=== PATIENT | male | born 1970 | race African-American/Black ===

== ENCOUNTER 2016-12-11 10:46 | Inpatient (IN) | payer OTHER ==
[2016-12-11 12:58] VITALS: BMI 30.4
--- NOTE | 2016-12-11 15:01 | HP ---
CIWA Score - CIWA Score Nausea/Vomitin-No Nausea/No Vomiting Muscle Tremors: 4-Moderate,w/Arms Extend Anxiety: 3 Agitation: 4-Moderately Restless Paroxysmal Sweats: 3 Orientation: 0-Oriented Tacttile Disturbances: 0-None Auditory Disturbances: 0-None Visual Disturbances: 0-None Headache: 1-Very Mild CIWA-Ar Total Score: 15 Admission ROS BHS - HPI Chief Complaint: I was sober for 4yrs and just relapsed and I need help. Allergies/Adverse Reactions: Allergies Allergy/AdvReac Type Severity Reaction Status Date / Time No Known Allergies Allergy Verified 12/11/16 13:44 History of Present Illness: pt is a 46yr old male with a history of alcohol dependence seeking detox for treatment. pt has a period of 4yrs sober and recently relapsed. pt also was upset and hit a wall where he fractured his metacarpal to forth finger soft cast intact. pt will f/u after detox. Exam Limitations: Physical Impairment (right hand injury 4weeks.) - Ebola screening Have you traveled outside of the country in the last 21 days: No Have you had contact with anyone from an Ebola affected area: No Have you been sick,other than usual withdrawal symptoms: No Do you have a fever: No - Review of Systems Constitutional: Chills, Diaphoresis, Night Sweats EENT: reports: No Symptoms Reported Respiratory: reports: No Symptoms reported Cardiac: reports: No Symptoms Reported GI: reports: Diarrhea, Poor Fluid Intake : reports: No Symptoms Reported Musculoskeletal: reports: Other (throbbing sensation at times from finger injury right hand) Integumentary: reports: No Symptoms Reported Neuro: reports: Tingling, Tremors Endocrine: reports: Excessive Sweating, Flushing, Intolerance to Cold, Intolerance to Heat Hematology: reports: No Symptoms Reported Psychiatric: reports: Judgement Intact, Mood/Affect Appropiate, Orientated x3, Agitated, Anxious Other Systems: Reviewed and Negative Patient History - Patient Medical History Hx Anemia: No Hx Asthma: No Hx Chronic Obstructive Pulmonary Disease (COPD): No Hx Cancer: No Hx Cardiac Disorders: No Hx Congestive Heart Failure: No Hx Hypertension: No Hx Hypercholesterolemia: No Hx Pacemaker: No HX Cerebrovascular Accident: No Hx Seizures: No Hx Dementia: No Hx Diabetes: Yes (NIDDM) Hx Gastrointestinal Disorders: No Hx Liver Disease: No Hx Genitourinary Disorders: No Hx Sexually Transmitted Disorders: Yes (gonorrhea/syphilis) Hx Renal Disease (ESRD): No Hx Thyroid Disease: No Hx Human Immunodeficiency Virus (HIV): No (negative) Hx Hepatitis C: No Hx Depression: Yes Hx Suicide Attempt: Yes (pill overdose in 2009) Hx Bipolar Disorder: No Hx Schizophrenia: No - Patient Surgical History Past Surgical History: No Hx Neurologic Surgery: No Hx Cataract Extraction: No Hx Cardiac Surgery: No Hx Lung Surgery: No Hx Breast Surgery: No Hx Breast Biopsy: No Hx Abdominal Surgery: No Hx Appendectomy: No Hx Cholecystectomy: No Hx Genitourinary Surgery: No Hx Section: No Hx Orthopedic Surgery: No Anesthesia Reaction: No - PPD History Previous Implant?: Yes Documented Results: Negative w/o proof Implanted On Prior R Admission?: No PPD to be Administered?: Yes - Reproductive History Patient is a Female of Child Bearing Age (11 -55 yrs old): No - Smoking Cessation Smoking history: Current every day smoker Have you smoked in the past 12 months: Yes Aproximately how many cigarettes per day: 20 Hx Chewing Tobacco Use: No Initiated information on smoking cessation: Yes 'Breaking Loose' booklet given: 12/11/16 - Substance & Tx. History Hx Alcohol Use: Yes Hx Substance Use: Yes Substance Use Type: Alcohol, Cocaine - Substances Abused Crack Route: Smoking Frequency: 3-6 times per week Amount used: $80 Age of first use: 12 Date of Last Use: 12/11/16 Alcohol-beer Route: Oral Frequency: Daily Amount used: 1 case of beer Age of first use: 12 Date of Last Use: 12/11/16 Family Disease History - Family Disease History Family History: Denies Family Disease History: Diabetes: Mother Admission Physical Exam BHS - Vital Signs Vital Signs: Vital Signs - 24 hr 12/11/16 12:55 Temperature 97 F L Pulse Rate 81 Respiratory 20 Rate Blood Pressure 112/66 - Physical General Appearance: Yes: Appropriately Dressed, Moderate Distress, Tremorous, Irritable, Sweating, Anxious HEENTM: Yes: Hearing grossly Normal Respiratory: Yes: Lungs Clear, Normal Breath Sounds, No Respiratory Distress Neck: Yes: No masses,lesions,Nodules Breast: Yes: Within Normal Limits Cardiology: Yes: Regular Rhythm, Regular Rate, S1, S2 Abdominal: Yes: Normal Bowel Sounds Genitourinary: Yes: Within Normal Limits Back: Yes: Normal Inspection Musculoskeletal: Yes: Within Normal Limits Extremities: Yes: Normal Capillary Refill, Normal Inspection, Tremors Neurological: Yes: Fully Oriented, Alert, Normal Response Integumentary: Yes: Normal Color, Diaphoresis Lymphatic: Yes: Within Normal Limits - Diagnostic (1) Diabetes mellitus Current Visit: Yes Status: Chronic Qualifiers: Diabetes mellitus type: type 1 Diabetes mellitus complication status: without complication Qualified Code(s): E10.9 - Type 1 diabetes mellitus without complications (2) Alcohol dependence with uncomplicated withdrawal Current Visit: Yes Status: Chronic (3) Cocaine dependence Current Visit: Yes Status: Chronic Qualifiers: Substance use status: uncomplicated Qualified Code(s): F14.20 - Cocaine dependence, uncomplicated (4) Finger injury Current Visit: Yes Status: Acute Qualifiers: Encounter type: initial encounter Laterality: right Qualified Code(s): S69.91XA - Unspecified injury of right wrist, hand and finger(s), initial encounter Comment: soft cast intact Cleared for Admission [facility] - Detox or Rehab [facility] Level of Care: Medically Managed Detox Regimen/Protocol: Librium [facility] Breath Alcohol Content Breath Alcohol Content: 0.074 Urine Drug Screen - Results Drug Screen Negative: No Urine Drug Screen Results: BRET-Cocaine
[2016-12-11] MEDS ORDERED: hydrOXYzine PAMOATE 50 MG CAPSULE (FP) PO PRN (15:13)
[2016-12-11] MEDS ORDERED: MENTHOL/PHENOL 1 EACH UD MM PRN (15:13)
[2016-12-11] MEDS ORDERED: diphenhydrAMINE HCL 50 MG CAPSULE PO PRN (15:13)
[2016-12-11] MEDS ORDERED: MAG HYDROX/AL HYDROX/SIMETH 30 ML UNIT-DOSE CUP PO PRN (15:13)
[2016-12-11] MEDS ORDERED: LOPERAMIDE HCL 2 MG CAPSULE PO PRN (15:13)
[2016-12-11] MEDS ORDERED: MAGNESIUM HYDROX 2400MG/30ML ORAL SUSPENSION 30 ML CUP PO PRN (15:13)
[2016-12-11] MEDS ORDERED: chlordiazePOXIDE HCL 25 MG CAPSULE PO PRN (15:13)
[2016-12-11] MEDS ORDERED: MAGNESIUM CITRATE 300 ML BOTTLE PO PRN (15:13)
[2016-12-11] MEDS ORDERED: guaiFENesin/D-METHORPHAN HB 10 ML UNIT-DOSE CUPS PO PRN (15:13)
[2016-12-11] MEDS ORDERED: IBUPROFEN 400 MG TABLET (FP) PO PRN (15:13)
[2016-12-11] MEDS ORDERED: P-EPHED 60MG/TRIPROLIDI 2.5MG TABLET PO PRN (15:13)
[2016-12-11] MEDS ORDERED: ACETAMINOPHEN 325 MG TABLET (FP) PO PRN (15:13)
[2016-12-11] MEDS ORDERED: chlordiazePOXIDE HCL 25 MG CAPSULE PO ONE (15:19)
--- NOTE | 2016-12-11 16:52 | CONSULT ---
[facility] Psychiatric Consult - Data Date of interview: 12/11/16 Admission source: [facility] Identifying data: First admission to [facility] for this 46 y/o AA male seeking detox treatment for alcohol and cocaine dependence.Patient is single,a father of one,domiciled,currently unemployed and supported on food stamps. Substance Abuse History: - Smoking Cessation. Smoking history: Current every day smoker. Have you smoked in the past 12 months: Yes. Aproximately how many cigarettes per day: 20. Hx Chewing Tobacco Use: No. Initiated information on smoking cessation: Yes. 'Breaking Loose' booklet given: 12/11/16. - Substance & Tx. History. Hx Alcohol Use: Yes. Hx Substance Use: Yes. Substance Use Type : Alcohol, Cocaine. - Substances Abused. Crack. Route: Smoking. Frequency : 3-6 times per week. Amount used: $80. Age of first use: 12. Date of Last Use: 12/11/16. Alcohol-beer. Route: Oral. Frequency: Daily. Amount used: 1 case of beer. Age of first use: 12. Date of Last Use: 12/11/16. Confirmed by patient. Medical History: History of treatment for gonorrhea and syphilis,diabetes mellitus and recent fracture of right hand. Psychiatric History: Patient admits to a history of multiple psychiatric hospitalizations ([facility]).Diagnosed with Bipolar Disorder.Prescribed trazodone 150 mg/hs and lithium carbonate 600 mg po bid.Mr Wilder does not attend OPD clinics.He gets scripts from sporadic emergency room visits,detox/rehab units and retentions to various [facility] inpatient services.He indicates that he was discharged on 12/04/16 from [facility] in [place], [place].Noted history of a suicide attempt in 2008 (overdose with medications). Physical/Sexual Abuse/Trauma History: Patient denies. Additional Comment: Urine Drug Screen Results: BRET-Cocaine.Noted. Mental Status Exam - Mental Status Exam Alert and Oriented to: Time, Place, Person Cognitive Function: Good Patient Appearance: Well Groomed (right hand in soft cast) Mood: Hopeful, Euthymic Affect: Appropriate, Normal Range Patient Behavior: Fatigued, Appropriate, Cooperative Speech Pattern: Clear Voice Loudness: Normal Thought Process: Goal Oriented Thought Disorder: Not Present Hallucinations: Denies Suicidal Ideation: Denies Homicidal Ideation: Denies Insight/Judgement: Poor Sleep: Fair Appetite: Good Muscle strength/Tone: Normal Gait/Station: Normal Psychiatric Findings - Problem List ([place] 1, 2,3) (1) Alcohol dependence with uncomplicated withdrawal Current Visit: Yes Status: Acute (2) Cocaine dependence Current Visit: Yes Status: Acute Qualifiers: Substance use status: uncomplicated Qualified Code(s): F14.20 - Cocaine dependence, uncomplicated (3) Nicotine dependence Current Visit: Yes Status: Acute (4) Bipolar disorder Current Visit: Yes Status: Chronic (5) Finger injury Current Visit: Yes Status: Acute Qualifiers: Encounter type: initial encounter Laterality: right Qualified Code(s): S69.91XA - Unspecified injury of right wrist, hand and finger(s), initial encounter Comment: soft cast intact (6) Diabetes mellitus Current Visit: Yes Status: Chronic Qualifiers: Diabetes mellitus type: type 1 Diabetes mellitus complication status: without complication Qualified Code(s): E10.9 - Type 1 diabetes mellitus without complications - Initial Treatment Plan Initial Treatment Plan: Psychoeducation.Detoxification.Medications : lithium is held until further orders (no labs available) + trazodone 100 mg po hs.Medications are confirmed by pharmacy claims of 11/30/16 @ [facility] Consult # [id number] / provider Rodrigo Carbajal.Patient is made aware of the necessity of particular labs ( renal function,electrolytes) prior to initiating lithotherapy.Made aware of potential for priapism (trazodone).Mr Wilder is in agreement with this plan of care.Observation.
[2016-12-11] MEDS: chlordiazePOXIDE HCL 25 MG CAPSULE PO SCH ×2 (18:37→22:08)
[2016-12-11] MEDS: THIAMINE HCL 100 MG TABLET (FP) PO SCH (22:07)
[2016-12-11] MEDS: NAPROXEN 500 MG TABLET (FP) PO SCH (22:08)
[2016-12-11] MEDS ORDERED: traZODone HCL 50 MG TABLET (FP) PO STA (23:48)
[2016-12-12] MEDS: chlordiazePOXIDE HCL 25 MG CAPSULE PO SCH ×4 (06:13→22:43)
[2016-12-12] MEDS: metFORMIN HCL 500 MG TABLET (FP) PO SCH (06:14)
--- NOTE | 2016-12-12 09:14 | EKG ---
Test Reason : Blood Pressure : / mmHG Vent. Rate : 073 BPM Atrial Rate : 073 BPM P-R Int : 190 ms QRS Dur : 094 ms QT Int : 388 ms P-R-T Axes : 016 028 025 degrees QTc Int : 427 ms NORMAL SINUS RHYTHM SEPTAL INFARCT , AGE UNDETERMINED ABNORMAL ECG NO PREVIOUS ECGS AVAILABLE Confirmed by HANNAH PECK, NELI ([id number]) on 12/12/2016 9:14:18 AM Referred By: Confirmed By:NELI YOUNG MD
[2016-12-12 10:14] LABS: MCH 33.2 pg (25.7-33.7); MCHC 33.5 g/dl (32.0-35.9); MEAN CELL VOLUME 99.2 fl (80-96); MEAN PLT VOLUME 9.3 fl (7.5-11.1); PLATELET COUNT 327 K/MM3 (134-434); RDW 13.9 % (11.9-15.9); WHITE BLOOD COUNT 8.9 K/mm3 (4.0-10.0)
[2016-12-12 10:29] LABS: ALBUMIN 4.4 g/dl (3.4-5.0); ALK PHOS 95 U/L (45-117); ANION GAP 6 (8-16); BILIRUBIN,TOTAL 0.4 mg/dL (0.2-1.0); CALCIUM 9.7 mg/dL (8.5-10.1); CO2 30 mmol/L (21-32); COCKROFT - GAULT 130.19; CREATININE 0.9 mg/dL (0.7-1.3); GLUCOSE,RANDOM 93 mg/dL (74-106); SGOT/AST 58 U/L (15-37); SGPT/ALT 41 U/L (12-78); TOT PROT 7.8 g/dl (6.4-8.2)
[2016-12-12] MEDS: PRENATAL VITAMINS W/ FOLIC ACID TABLET (FP) PO SCH (10:50)
[2016-12-12] MEDS: NAPROXEN 500 MG TABLET (FP) PO SCH ×2 (10:51→22:43)
--- NOTE | 2016-12-12 12:48 | PN ---
S CIWA - CIWA Score Nausea/Vomitin Muscle Tremors: 2 Anxiety: 3 Agitation: 2 Paroxysmal Sweats: 3 Orientation: 0-Oriented Tacttile Disturbances: 1-Very Mild Itch/Numbness Auditory Disturbances: 1-Very Mild Visual Disturbances: 1-Very Mild Sensitivity Headache: 2-Mild CIWA-Ar Total Score: 18 S Progress Note (SOAP) Subjective: Joint and muscle pain, shakes, sweats and interrupted sleep Objective: 12/12/16 12:47 Vital Signs - 8 hr 12/12/16 12/12/16 06:00 10:37 Temperature 97.3 F L 99.1 F Pulse Rate 71 76 Respiratory 18 18 Rate Blood Pressure 98/65 117/74 Laboratory Last Values WBC 8.9 K/mm3 (4.0-10.0) 12/12/16 06:10 RBC 4.44 M/mm3 (4.00-5.60) 12/12/16 06:10 Hgb 14.7 GM/dL (11.7-16.9) 12/12/16 06:10 Hct 44.1 % (35.4-49) 12/12/16 06:10 MCV 99.2 fl (80-96) H 12/12/16 06:10 MCHC 33.5 g/dl (32.0-35.9) 12/12/16 06:10 RDW 13.9 % (11.9-15.9) 12/12/16 06:10 Plt Count 327 K/MM3 (134-434) 12/12/16 06:10 MPV 9.3 fl (7.5-11.1) 12/12/16 06:10 Sodium 140 mmol/L (136-145) 12/12/16 06:10 Potassium 4.1 mmol/L (3.5-5.1) 12/12/16 06:10 Chloride 104 mmol/L (98-107) 12/12/16 06:10 Carbon Dioxide 30 mmol/L (21-32) 12/12/16 06:10 Anion Gap 6 (8-16) L 12/12/16 06:10 BUN 7 mg/dL (7-18) 12/12/16 06:10 Creatinine 0.9 mg/dL (0.7-1.3) 12/12/16 06:10 Creat Clearance w eGFR > 60 (>60) 12/12/16 06:10 POC Glucometer 111 UNITS (()) 12/12/16 06:11 Random Glucose 93 mg/dL (74-106) 12/12/16 06:10 Calcium 9.7 mg/dL (8.5-10.1) 12/12/16 06:10 Total Bilirubin 0.4 mg/dL (0.2-1.0) 12/12/16 06:10 AST 58 U/L (15-37) H 12/12/16 06:10 ALT 41 U/L (12-78) 12/12/16 06:10 Alkaline Phosphatase 95 U/L (45-117) 12/12/16 06:10 Total Protein 7.8 g/dl (6.4-8.2) 12/12/16 06:10 Albumin 4.4 g/dl (3.4-5.0) 12/12/16 06:10 Labs noted Assessment: 12/12/16 12:48 withdrawal sx Plan: continue detox
[2016-12-12 13:28] LABS: HIV 1 & 2 AB NEGATIVE; HIV 1 AGp24 NEGATIVE
[2016-12-12] MEDS: THIAMINE HCL 100 MG TABLET (FP) PO SCH (22:42)
[2016-12-12] MEDS: traZODone HCL 100 MG TABLET (FP) PO SCH (22:44)
[2016-12-13] MEDS: metFORMIN HCL 500 MG TABLET (FP) PO SCH (06:36)
[2016-12-13] MEDS: chlordiazePOXIDE HCL 25 MG CAPSULE PO SCH ×2 (06:36→10:33)
--- NOTE | 2016-12-13 09:43 | PN ---
[facility] Progress Note Note: Psychiatry Attending's senior information security architect note : Labs reviewed. [place] level = 0.1 (poor compliance). Basic metabolic level is normal. Normal renal function. Restart lithium carbonate 600 mg po bid. Ordered.Pharmacy claims reviewed. Doses are confirmed.No scripts at discharge. Most recent filled scripts : 11/30/16.
[2016-12-13] MEDS: PRENATAL VITAMINS W/ FOLIC ACID TABLET (FP) PO SCH (10:33)
[2016-12-13] MEDS: NAPROXEN 500 MG TABLET (FP) PO SCH ×2 (10:34→22:25)
--- NOTE | 2016-12-13 11:29 | PN ---
[facility] CIWA - CIWA Score Nausea/Vomitin-No Nausea/No Vomiting Muscle Tremors: 2 Anxiety: 4-Mod. Anxious/Guarded Agitation: 4-Moderately Restless Paroxysmal Sweats: 2 Orientation: 0-Oriented Tacttile Disturbances: 0-None Auditory Disturbances: 0-None Visual Disturbances: 0-None Headache: 0-None Present CIWA-Ar Total Score: 12 BHS Progress Note (SOAP) Subjective: Sweating,anxiety,tremors,interrupted sleep,restless Objective: 12/13/16 11:27 Vital Signs - 8 hr 12/13/16 12/13/16 12/13/16 03:30 06:00 09:41 Temperature 97.5 F L 97.7 F Pulse Rate 78 71 Respiratory 18 18 16 Rate Blood Pressure 102/66 104/61 Laboratory Last Values WBC 8.9 K/mm3 (4.0-10.0) 12/12/16 06:10 RBC 4.44 M/mm3 (4.00-5.60) 12/12/16 06:10 Hgb 14.7 GM/dL (11.7-16.9) 12/12/16 06:10 Hct 44.1 % (35.4-49) 12/12/16 06:10 MCV 99.2 fl (80-96) H 12/12/16 06:10 MCHC 33.5 g/dl (32.0-35.9) 12/12/16 06:10 RDW 13.9 % (11.9-15.9) 12/12/16 06:10 Plt Count 327 K/MM3 (134-434) 12/12/16 06:10 MPV 9.3 fl (7.5-11.1) 12/12/16 06:10 Sodium 140 mmol/L (136-145) 12/12/16 06:10 Potassium 4.1 mmol/L (3.5-5.1) 12/12/16 06:10 Chloride 104 mmol/L (98-107) 12/12/16 06:10 Carbon Dioxide 30 mmol/L (21-32) 12/12/16 06:10 Anion Gap 6 (8-16) L 12/12/16 06:10 BUN 7 mg/dL (7-18) 12/12/16 06:10 Creatinine 0.9 mg/dL (0.7-1.3) 12/12/16 06:10 Creat Clearance w eGFR > 60 (>60) 12/12/16 06:10 POC Glucometer 125 UNITS (()) 12/13/16 06:28 Random Glucose 93 mg/dL (74-106) 12/12/16 06:10 Calcium 9.7 mg/dL (8.5-10.1) 12/12/16 06:10 Total Bilirubin 0.4 mg/dL (0.2-1.0) 12/12/16 06:10 AST 58 U/L (15-37) H 12/12/16 06:10 ALT 41 U/L (12-78) 12/12/16 06:10 Alkaline Phosphatase 95 U/L (45-117) 12/12/16 06:10 Total Protein 7.8 g/dl (6.4-8.2) 12/12/16 06:10 Albumin 4.4 g/dl (3.4-5.0) 12/12/16 06:10 [place] 0.1 MEQ/L (0.6-1.2) L 12/12/16 08:00 RPR Titer Nonreactive (NONREACTIVE) 12/12/16 06:10 HIV 1&2 Antibody Screen Negative 12/12/16 08:00 HIV P24 Antigen Negative 12/12/16 08:00 labs noted Assessment: 12/13/16 11:28 Withdrawal sx. Plan: Continue detox
[2016-12-13] MEDS: LITHIUM CARBONATE 300 MG CAPSULE (FP) PO SCH ×2 (12:30→22:24)
[2016-12-13] MEDS: chlordiazePOXIDE 5 MG CAPSULE PO SCH ×2 (17:31→22:24)
[2016-12-13] MEDS: traZODone HCL 100 MG TABLET (FP) PO SCH (22:24)
[2016-12-13] MEDS: THIAMINE HCL 100 MG TABLET (FP) PO SCH (22:24)
[2016-12-14] MEDS: chlordiazePOXIDE 5 MG CAPSULE PO SCH ×2 (05:25→10:34)
[2016-12-14] MEDS: metFORMIN HCL 500 MG TABLET (FP) PO SCH (07:30)
[2016-12-14] MEDS: PRENATAL VITAMINS W/ FOLIC ACID TABLET (FP) PO SCH (10:33)
[2016-12-14] MEDS: LITHIUM CARBONATE 300 MG CAPSULE (FP) PO SCH ×2 (10:34→22:07)
[2016-12-14] MEDS: NAPROXEN 500 MG TABLET (FP) PO SCH ×2 (10:36→22:08)
--- NOTE | 2016-12-14 11:51 | PN ---
B[facility] Progress Note (SOAP) Subjective: feels better Objective: 12/14/16 11:48 Vital Signs Temperature 97.7 F 12/14/16 09:56 Pulse Rate 72 12/14/16 09:56 Respiratory Rate 16 12/14/16 09:56 Blood Pressure 111/66 12/14/16 09:56 O2 Sat by Pulse Oximetry (%) Laboratory Tests 12/11/16 12/11/16 12/12/16 14:01 16:23 06:10 WBC 8.9 RBC 4.44 Hgb 14.7 Hct 44.1 MCV 99.2 H MCHC 33.5 RDW 13.9 Plt Count 327 MPV 9.3 Sodium Potassium Chloride Carbon Dioxide Anion Gap BUN Creatinine Creat Clearance w eGFR POC Glucometer 126 154 Random Glucose Calcium Total Bilirubin AST ALT Alkaline Phosphatase Total Protein Albumin [place] RPR Titer HIV 1&2 Antibody Screen HIV P24 Antigen 12/12/16 12/12/16 12/12/16 06:10 06:10 06:11 WBC RBC Hgb Hct MCV MCHC RDW Plt Count MPV Sodium 140 Potassium 4.1 Chloride 104 Carbon Dioxide 30 Anion Gap 6 L BUN 7 Creatinine 0.9 Creat Clearance w eGFR > 60 POC Glucometer 111 Random Glucose 93 Calcium 9.7 Total Bilirubin 0.4 AST 58 H ALT 41 Alkaline Phosphatase 95 Total Protein 7.8 Albumin 4.4 [place] RPR Titer Nonreactive HIV 1&2 Antibody Screen HIV P24 Antigen 12/12/16 12/12/16 12/12/16 08:00 08:00 16:25 WBC RBC Hgb Hct MCV MCHC RDW Plt Count MPV Sodium Potassium Chloride Carbon Dioxide Anion Gap BUN Creatinine Creat Clearance w eGFR POC Glucometer 129 Random Glucose Calcium Total Bilirubin AST ALT Alkaline Phosphatase Total Protein Albumin [place] 0.1 L RPR Titer HIV 1&2 Antibody Screen Negative HIV P24 Antigen Negative 12/13/16 12/13/16 12/14/16 06:28 16:00 05:36 WBC RBC Hgb Hct MCV MCHC RDW Plt Count MPV Sodium Potassium Chloride Carbon Dioxide Anion Gap BUN Creatinine Creat Clearance w eGFR POC Glucometer 125 129 104 Random Glucose Calcium Total Bilirubin AST ALT Alkaline Phosphatase Total Protein Albumin [place] RPR Titer HIV 1&2 Antibody Screen HIV P24 Antigen pt aox3 in nad ambulating Assessment: 12/14/16 11:49 Vital Signs Temperature 97.7 F 12/14/16 09:56 Pulse Rate 72 12/14/16 09:56 Respiratory Rate 16 12/14/16 09:56 Blood Pressure 111/66 12/14/16 09:56 O2 Sat by Pulse Oximetry (%) Laboratory Tests 12/11/16 12/11/16 12/12/16 14:01 16:23 06:10 WBC 8.9 RBC 4.44 Hgb 14.7 Hct 44.1 MCV 99.2 H MCHC 33.5 RDW 13.9 Plt Count 327 MPV 9.3 Sodium Potassium Chloride Carbon Dioxide Anion Gap BUN Creatinine Creat Clearance w eGFR POC Glucometer 126 154 Random Glucose Calcium Total Bilirubin AST ALT Alkaline Phosphatase Total Protein Albumin [place] RPR Titer HIV 1&2 Antibody Screen HIV P24 Antigen 12/12/16 12/12/16 12/12/16 06:10 06:10 06:11 WBC RBC Hgb Hct MCV MCHC RDW Plt Count MPV Sodium 140 Potassium 4.1 Chloride 104 Carbon Dioxide 30 Anion Gap 6 L BUN 7 Creatinine 0.9 Creat Clearance w eGFR > 60 POC Glucometer 111 Random Glucose 93 Calcium 9.7 Total Bilirubin 0.4 AST 58 H ALT 41 Alkaline Phosphatase 95 Total Protein 7.8 Albumin 4.4 [place] RPR Titer Nonreactive HIV 1&2 Antibody Screen HIV P24 Antigen 12/12/16 12/12/16 12/12/16 08:00 08:00 16:25 WBC RBC Hgb Hct MCV MCHC RDW Plt Count MPV Sodium Potassium Chloride Carbon Dioxide Anion Gap BUN Creatinine Creat Clearance w eGFR POC Glucometer 129 Random Glucose Calcium Total Bilirubin AST ALT Alkaline Phosphatase Total Protein Albumin [place] 0.1 L RPR Titer HIV 1&2 Antibody Screen Negative HIV P24 Antigen Negative 12/13/16 12/13/16 12/14/16 06:28 16:00 05:36 WBC RBC Hgb Hct MCV MCHC RDW Plt Count MPV Sodium Potassium Chloride Carbon Dioxide Anion Gap BUN Creatinine Creat Clearance w eGFR POC Glucometer 125 129 104 Random Glucose Calcium Total Bilirubin AST ALT Alkaline Phosphatase Total Protein Albumin [place] RPR Titer HIV 1&2 Antibody Screen HIV P24 Antigen pt aox3 in nad ambulating 12/14/16 11:50 withdrawal sx's Plan: cont. detox increase fluids d/c in am
[2016-12-14] MEDS: chlordiazePOXIDE HCL 10 MG CAPSULE PO SCH ×2 (17:36→22:07)
[2016-12-14] MEDS: traZODone HCL 100 MG TABLET (FP) PO SCH (22:07)
[2016-12-14] MEDS: THIAMINE HCL 100 MG TABLET (FP) PO SCH (22:07)
[2016-12-14 22:57] VITALS: TEMP 97.7
[2016-12-15] MEDS: chlordiazePOXIDE HCL 10 MG CAPSULE PO SCH ×2 (05:24→10:04)
[2016-12-15 06:05] VITALS: BP 97/66; PULSE 71
[2016-12-15] MEDS: metFORMIN HCL 500 MG TABLET (FP) PO SCH (08:05)
--- NOTE | 2016-12-15 08:44 | DS ---
[facility] Detox Discharge Summary Admission Date: 12/11/16 Discharge Date: 12/15/16 - History Present History: Alcohol Dependence, Cocaine Dependence - Physical Exam Results Vital Signs: Vital Signs Temperature 97.7 F 12/15/16 06:03 Pulse Rate 71 12/15/16 06:03 Respiratory Rate 16 12/15/16 06:03 Blood Pressure 97/66 12/15/16 06:03 O2 Sat by Pulse Oximetry (%) - Treatment Hospital Course: Detox Protocol Followed, Detoxed Safely, Responded well, Discharged Condition Good, Rehab Referral Accepted - Medication Discharge Medications: Ambulatory Orders [place] Carbonate [Eskalith -] 600 mg PO BID 12/11/16 Metformin HCl [Glucophage] 1,000 mg PO DAILY 12/11/16 Trazodone HCl [Desyrel -] 150 mg PO HS 12/11/16 - Diagnosis (1) Diabetes mellitus Current Visit: Yes Status: Chronic Qualifiers: Diabetes mellitus type: type 1 Diabetes mellitus complication status: without complication Qualified Code(s): E10.9 - Type 1 diabetes mellitus without complications (2) Alcohol dependence with uncomplicated withdrawal Current Visit: Yes Status: Chronic (3) Cocaine dependence Current Visit: Yes Status: Chronic Qualifiers: Substance use status: uncomplicated Qualified Code(s): F14.20 - Cocaine dependence, uncomplicated (4) Finger injury Current Visit: Yes Status: Acute Qualifiers: Encounter type: initial encounter Laterality: right Qualified Code(s): S69.91XA - Unspecified injury of right wrist, hand and finger(s), initial encounter - AMA Did Patient Leave Against Medical Advice: No
[2016-12-15] MEDS: NAPROXEN 500 MG TABLET (FP) PO SCH (10:02)
[2016-12-15] MEDS: PRENATAL VITAMINS W/ FOLIC ACID TABLET (FP) PO SCH (10:03)
[2016-12-15] MEDS: LITHIUM CARBONATE 300 MG CAPSULE (FP) PO SCH (10:03)
== END 2016-12-15 10:06 | disposition home or self-care (01) | DRG 774 ==
LOC: YASAS 10:46 → Y6N 14:42
PROVIDERS: ADMIT Internal Medicine; ATTEND Internal Medicine
PROC: HZ2ZZZZ Detoxification Services for Substance Abuse Treatment (ICD-10-PCS; principal; 2016-12-11)
DX: F10.230 Alcohol dependence with withdrawal, uncomplicated (principal); F14.20 Cocaine dependence, uncomplicated; F17.210 Nicotine dependence, cigarettes, uncomplicated; F31.9 Bipolar disorder, unspecified; E10.9 Type 1 diabetes mellitus without complications; Z87.438 Personal history of other diseases of male genital organs; Z91.5 Personal history of self-harm
CPT/HCPCS: 36415; 80053; 80178; 81003; 85027; 86593; 87389; 93005; 93010

== ENCOUNTER 2019-09-24 03:07 | Emergency (ER) | payer OTHER ==
[2019-09-24 03:10] VITALS: BMI 28.8
[2019-09-24] MEDS ORDERED: ACETAMINOPHEN 1000 MG/100 ML VIAL (NON FORMULARY) IVPB ONE (03:32)
[2019-09-24] MEDS ORDERED: LIDOCAINE 5% TOPICAL PATCH TP ONE (03:32)
--- NOTE | 2019-09-24 03:35 | PDOC ---
History of Present Illness - General Chief Complaint: Back Pain Stated Complaint: BACK PAIN Time Seen by Provider: 09/24/19 03:20 History Source: Patient Exam Limitations: No Limitations - History of Present Illness Initial Comments: 09/24/19 03:34 49y M with PMH of DM, Bipolar, PTSD presenting to ED with complaints of R lower back/hip pain. Pt states pain started 2d ago when he was changing a tire. He says he was bent over and when he got back up he felt a pain in the R lower back and R hip. He has a history of herniated discs from an accident and pt says this pain is not like the disc pain. He has been having difficulty walking due to the pain. He denies numbness, urinary retention/incontinence, saddle anesthesia. Of note, pt was at [facility] this week for his typical back pain. He was unable to get out of bed this AM due to the pain, he called EMS. PMD: PMH: see hpi PSH: knee surgery Meds: none Allergies: nkda Social: 3-4 beers/week, 1/2ppd Past History - Past Medical History Allergies/Adverse Reactions: Allergies Allergy/AdvReac Type Severity Reaction Status Date / Time No Known Allergies Allergy Verified 09/24/19 03:10 Home Medications: Ambulatory Orders [place] Carbonate [Eskalith -] 600 mg PO BID 12/11/16 Metformin HCl [Glucophage] 1,000 mg PO DAILY 12/11/16 traZODone HCL [Desyrel -] 150 mg PO HS 12/11/16 Anemia: No Asthma: No Cancer: No Cardiac Disorders: No CVA: No COPD: No CHF: No Dementia: No Diabetes: Yes (NIDDM) GI Disorders: No Disorders: No HTN: No Hypercholesterolemia: No Kidney Stones: No Liver Disease: No Seizures: No Thyroid Disease: No - Surgical History Abdominal Surgery: No Appendectomy: No Cardiac Surgery: No Cholecystectomy: No Lung Surgery: No Neurologic Surgery: No Orthopedic Surgery: No - Reproductive History Testicular Surgery: No - Psycho Social/Smoking Cessation Hx Smoking History: Unknown if ever smoked Have you smoked in the past 12 months: Yes Number of Cigarettes Smoked Daily: 20 'Breaking Loose' booklet given: 12/11/16 Hx Alcohol Use: Yes Drug/Substance Use Hx: Yes Substance Use Type: Alcohol, Cocaine Hx Substance Use Treatment: No Review of Systems - Review of Systems Constitutional: No: Symptoms Reported HEENTM: No: Symptoms Reported Respiratory: No: Symptoms reported Cardiac (ROS): No: Symptoms Reported ABD/GI: No: Symptoms Reported : No: Symptoms Reported Musculoskeletal: Yes: See HPI Integumentary: No: Symptoms Reported Neurological: No: Symptoms reported *Physical Exam - Vital Signs Last Vital Signs Temp Pulse Resp BP Pulse Ox 97.0 F L 77 18 125/80 100 09/24/19 03:08 09/24/19 03:08 09/24/19 03:08 09/24/19 03:08 09/24/19 03:08 - Physical Exam General Appearance: Yes: Nourished, Appropriately Dressed. No: Apparent Distress HEENT: positive: EOMI, VIVIANA, Normal ENT Inspection Neck: positive: Trachea midline, Supple Respiratory/Chest: positive: Lungs Clear, Normal Breath Sounds Cardiovascular: positive: Regular Rhythm, Regular Rate, S1, S2. negative: Edema , JVD, Murmur Vascular Pulses: Dorsalis-Pedis (R): 2+, Doralis-Pedis (L): 2+ Gastrointestinal/Abdominal: positive: Normal Bowel Sounds, Soft. negative: Tender Musculoskeletal: positive: Muscle Spasm (R lower back), Other (+SLR R side and L side referred to R lower back). negative: CVA Tenderness, Vertebral Tenderness Extremity: positive: Normal Capillary Refill Integumentary: positive: Normal Color, Dry, Warm Neurologic: positive: lens coater II-XII NML intact, Fully Oriented, Alert, Normal Mood/ Affect, Normal Response, Motor Strength 5/5 Deep Tendon Reflexes: Knee (L): 2+, Knee (R): 2+ ED Treatment Course - LABORATORY CBC & Chemistry Diagram: 09/24/19 03:56 09/24/19 03:56 Medical Decision Making - Medical Decision Making 09/24/19 07:01 49y M presenting to ED with R lowr back pain. Suspect sciatica. will obtain basic labs -ofirmev, toradol, robaxin, lidoderm patch. given history of herniated discs, will obtain lumbar spine ct. 09/24/19 07:03 upon reassessment, pt was alseep. When woken up pt states that he can move a bit and pain has subsided "a little". pending CT. will sign out to day team. likely dc home if pain controlled and pt can ambulate. Discharge - Discharge Information Problems reviewed: Yes Clinical Impression/Diagnosis: Musculoskeletal back pain - Follow up/Referral Referrals: Emelia Virgen NP [Primary Care Provider] - - Patient Discharge Instructions Patient Printed Discharge Instructions: DI for Low Back Pain Additional Instructions: You have musculoskeletal back pain. I recommend light stretching and massaging. You can take ibuprofen/Advil for the pain as needed. Do not do any heavy lifting for the next week or so. Please see your doctor this week. Your A1c is normal. Come back to the emergency room if you have worsening pain, weakness, numbness, difficulty urinating or if any new or concerning symptom develops. Thank you - Post Discharge Activity
[2019-09-24] MEDS ORDERED: LIDOCAINE 5% TOPICAL PATCH ONE (03:43)
[2019-09-24] MEDS ORDERED: ACETAMINOPHEN INJECTION 100 ML IVPB ONE (03:43)
--- NOTE | 2019-09-24 03:43 | PDOC ---
Attending Attestation - Resident Resident Name: Yun Sanchez - ED Attending Attestation I have performed the following: I have examined & evaluated the patient, The case was reviewed & discussed with the resident, I agree w/resident's findings & plan - HPI HPI: 09/24/19 06:38 Pt states that he has a hx of 3 disc issues. He hurt his back a couple days nack while changin a tire and now unable to get out of bed. He had to crawl to the kitchen as he was hungry . Pt had to crawl back to his bed. - Physicial Exam PE: 09/24/19 06:41 Pt has right leg raise +; when he raises the left leg 45degrees; he has pain in the right low back Pt has no stepoffs on the spine, but he has paraspinal - Medical Decision Making 09/24/19 05:10 labs are all WNL 09/24/19 05:[address] scan of the L spine, as his left leg raise is + for pain running down the left leg. 09/24/19 06:43 Pt was given meds. Pt reassured. 09/24/19 07:05 SIGN OUT TO DAY TEAM
[2019-09-24 04:14] LABS: BASO % 1.5 % (0-2.0); EOS % 2.7 % (0-4.5); HEMATOCRIT 44.6 % (35.4-49); HEMOGLOBIN 15.2 GM/dL (11.7-16.9); LYMPH % 24.7 % (8-40); MCH 33.9 pg (25.7-33.7); MCHC 34.1 g/dl (32.0-35.9); MEAN CELL VOLUME 99.5 fl (80-96); MEAN PLT VOLUME 8.9 fl (7.5-11.1); MONO % 9.5 % (3.8-10.2); NEUT % 61.6 % (42.8-82.8); PLATELET COUNT 327 K/MM3 (134-434); RBC 4.49 M/mm3 (4.00-5.60); RDW 13.2 % (11.9-15.9); WHITE BLOOD COUNT 4.8 K/mm3 (4.0-10.0)
[2019-09-24 04:47] LABS: ALBUMIN 3.8 g/dl (3.4-5.0); BILIRUBIN,TOTAL 0.3 mg/dL (0.2-1); BLOOD UREA NITROGEN 16.4 mg/dL (7-18); CALCIUM 9.5 mg/dL (8.5-10.1); POTASSIUM 4.7 mmol/L (3.5-5.1); TOT PROT 7.2 g/dl (6.4-8.2)
[2019-09-24] MEDS ORDERED: KETOROLAC TROMETHAMINE 15 MG/ML VIAL IVPUSH ONE (05:02)
[2019-09-24] MEDS ORDERED: METHOCARBAMOL 500 MG TABLET PO ONE (05:02)
[2019-09-24] MEDS ORDERED: KETOROLAC TROMETHAMINE 15 MG/ML VIAL ONE (05:14)
[2019-09-24] MEDS ORDERED: METHOCARBAMOL 500 MG TABLET ONE (05:14)
[2019-09-24 06:04] VITALS: TEMP 97.9
--- NOTE | 2019-09-24 07:23 | PDOC ---
*Physical Exam - Vital Signs Last Vital Signs Temp Pulse Resp BP Pulse Ox 97.9 F 77 18 125/80 100 09/24/19 06:04 09/24/19 03:08 09/24/19 03:08 09/24/19 03:08 09/24/19 03:08 - Physical Exam General Appearance: No: Nourished, Appropriately Dressed, Apparent Distress, Disheveled, Mild Distress, Moderate Distress, Severe Distress, Alcohol on Breath , Intoxicated, Cachetic, Obese, Thin, Other HEENT: negative: EOMI, VIVIANA, Normal ENT Inspection, Normal Voice, Symmetrical, TMs Normal, Pharynx Normal, Pale Conjunctivae, Photophobia, Scleral Icterus (R) , Scleral Icterus (L), Muffled/Hoarse voice, Pharyngeal Erythema, Tonsillar Exudate, Tonsillar Erythema, Nasal Congestion, Rhinorrhea, Sinus Tenderness, Orbits, Hearing Decreased, Hearing Grossly Normal, TM Bulging, TM Dull, TM Erythema, Lesions, Hall, Excessive drooling, Thrush, Other Neck: negative: Tender, Trachea midline, Normal Thyroid, Rigid, Supple, Carotid bruit, Decreased range of motion, Stridor, Lymphadenopathy (R), Lymphadenopathy (L), Rigidity, Tender lateral, Tender midline, Thyromegaly, Other Respiratory/Chest: negative: Chest Tender, Lungs Clear, Normal Breath Sounds, Respiratory Distress, Accessory Muscle Use, Labored Respiration, Rapid RR, Decreased Breath Sounds, Paradoxal Breathing, Crackles, Rales, Rhonchi, Stridor , Wheezing, Hyperresonant, Dullness, Plerual Rub, Other ED Treatment Course - LABORATORY CBC & Chemistry Diagram: 09/24/19 03:56 09/24/19 03:56 - ADDITIONAL ORDERS Additional order review: Laboratory Results 09/24/19 09/24/19 03:56 03:56 Sodium 141 Potassium 4.7 Chloride 109 H Carbon Dioxide 28 Anion Gap 4 L BUN 16.4 Creatinine 1.0 Est GFR (CKD-EPI)AfAm 101.26 Est GFR (CKD-EPI)NonAf 87.37 Random Glucose 100 Hemoglobin A1c % 6.3 Calcium 9.5 Total Bilirubin 0.3 AST 24 ALT 25 Alkaline Phosphatase 97 Total Protein 7.2 Albumin 3.8 09/24/19 03:56 RBC 4.49 MCV 99.5 H MCHC 34.1 RDW 13.2 MPV 8.9 Neutrophils % 61.6 Lymphocytes % 24.7 Monocytes % 9.5 Eosinophils % 2.7 Basophils % 1.5 - Medications Given in the ED: ED Medications Discontinued Medications Generic Name Dose Route Start Last Admin Trade Name Jennifer PRN Reason Stop Dose Admin Acetaminophen 1,000 mg 09/24/19 03:32 09/24/19 04:00 Ofirmev Injection - IVPB 09/24/19 03:33 1,000 mg ONCE ONE Administration Ketorolac Tromethamine 15 mg 09/24/19 05:02 09/24/19 05:22 Toradol Injection - IVPUSH 09/24/19 05:03 15 mg ONCE ONE Administration Lidocaine 1 patch 09/24/19 03:32 09/24/19 03:59 Lidoderm Patch - TP 09/24/19 03:33 1 patch ONCE ONE Administration Methocarbamol 1,000 mg 09/24/19 05:02 09/24/19 05:22 Robaxin - PO 09/24/19 05:03 1,000 mg ONCE ONE Administration ED Progress Note - Progress Note Progress Note: Received hand-off from Dr. Sanchez. Pt stable. Awaiting CT. Pain improving. 09/24/19 07:22 09/24/19 09:29 Pt resting comfortably. Back from CT. No current pain. 09/24/19 10:[address] Nogueira (radiology) report of non-emergency some L5 disc herniation. No prev imaging to compare. Pt could benefit from complete out-pt w/ u including MRI. Current neurological exam non-focal. CN II-XII intact. BL patellar reflexes 2+. Strength 5/5 UE LE BL prox and distally for flexors and extensors. Gross sensation intact. 09/24/19 10:23 Discussed finding so far with pt. Plan for dc with tylenol and neurology f/u. Discharge - Discharge Information Problems reviewed: Yes Clinical Impression/Diagnosis: Musculoskeletal back pain Condition: Improved Disposition: HOME - Admission No - Follow up/Referral Referrals: Emelia Virgen NP [Primary Care Provider] - Sharan Gill MD [Staff Physician] - - Patient Discharge Instructions Patient Printed Discharge Instructions: DI for Low Back Pain Additional Instructions: You have musculoskeletal back pain and herniated disc. I recommend light stretching and massaging. You can take ibuprofen/Advil for the pain as needed. Do not do any heavy lifting for the next week or so. Make an appointment to see a neurologist (we have provided a referral or you can call your insurance company for a list of doctors) Please see your doctor this week. Your A1c is normal. Come back to the emergency room if you have worsening pain, weakness, numbness, difficulty urinating or if any new or concerning symptom develops. Thank you - Post Discharge Activity
--- NOTE | 2019-09-24 07:30 | PDOC ---
*Physical Exam - Vital Signs Last Vital Signs Temp Pulse Resp BP Pulse Ox 97.9 F 77 18 125/80 100 09/24/19 06:04 09/24/19 03:08 09/24/19 03:08 09/24/19 03:08 09/24/19 03:08 ED Treatment Course - LABORATORY CBC & Chemistry Diagram: 09/24/19 03:56 09/24/19 03:56 - ADDITIONAL ORDERS Additional order review: Laboratory Results 09/24/19 09/24/19 03:56 03:56 Sodium 141 Potassium 4.7 Chloride 109 H Carbon Dioxide 28 Anion Gap 4 L BUN 16.4 Creatinine 1.0 Est GFR (CKD-EPI)AfAm 101.26 Est GFR (CKD-EPI)NonAf 87.37 Random Glucose 100 Hemoglobin A1c % 6.3 Calcium 9.5 Total Bilirubin 0.3 AST 24 ALT 25 Alkaline Phosphatase 97 Total Protein 7.2 Albumin 3.8 09/24/19 03:56 RBC 4.49 MCV 99.5 H MCHC 34.1 RDW 13.2 MPV 8.9 Neutrophils % 61.6 Lymphocytes % 24.7 Monocytes % 9.5 Eosinophils % 2.7 Basophils % 1.5 - Medications Given in the ED: ED Medications Discontinued Medications Generic Name Dose Route Start Last Admin Trade Name Freq PRN Reason Stop Dose Admin Acetaminophen 1,000 mg 09/24/19 03:32 09/24/19 04:00 Ofirmev Injection - IVPB 09/24/19 03:33 1,000 mg ONCE ONE Administration Ketorolac Tromethamine 15 mg 09/24/19 05:02 09/24/19 05:22 Toradol Injection - IVPUSH 09/24/19 05:03 15 mg ONCE ONE Administration Lidocaine 1 patch 09/24/19 03:32 09/24/19 03:59 Lidoderm Patch - TP 09/24/19 03:33 1 patch ONCE ONE Administration Methocarbamol 1,000 mg 09/24/19 05:02 09/24/19 05:22 Robaxin - PO 09/24/19 05:03 1,000 mg ONCE ONE Administration Medical Decision Making - Medical Decision Making 09/24/19 07:[address] Arredondo (Attending) and Dr. Sanchez (PGY-2) @ [id number] 49 y/o male with back pain and R hip pain that started while changing a tire. H/o herniated disc No SiSx concerning for cauda equina Patient evaluated at [facility] earlier this week for his pain CT-L spine pending 09/24/19 07:50 Patient @ CT 09/24/19 08:36 Patient reassessed @ bedside On my exam patient has some paraspinal TTP, intact DTR's, 5/5 strength in B/L LE 09/24/19 10:17 CT w/some disc herniation @ L5 Discharge home with neurology for possible MRI and pain management referral, NSAID for analgesia Discharge - Discharge Information Problems reviewed: Yes Clinical Impression/Diagnosis: Musculoskeletal back pain Condition: Improved Disposition: HOME - Additional Discharge Information Prescriptions: Ibuprofen [Motrin -] 600 mg PO TID PRN #60 tablet PRN Reason: Pain - Follow up/Referral Referrals: Emelia Virgen NP [Primary Care Provider] - Sharan Gill MD [Staff Physician] - Rigo Diaz MD [Staff Physician] - - Patient Discharge Instructions Patient Printed Discharge Instructions: DI for Low Back Pain Additional Instructions: You have musculoskeletal back pain and herniated disc. I recommend light stretching and massaging. You can take ibuprofen/Advil for the pain as needed. Do not do any heavy lifting for the next week or so. Make an appointment to see a neurologist (we have provided a referral or you can call your insurance company for a list of doctors). We have also provided a referral to a pain management doctor should you wish to have [facility] pain management. Please see your doctor this week. Your A1c is normal. Come back to the emergency room if you have worsening pain, weakness, numbness, difficulty urinating or if any new or concerning symptom develops. Thank you - Post Discharge Activity
[2019-09-24 10:28] VITALS: BP 114/66; PULSE 66
[2019-09-24] MEDS ORDERED: LIDOCAINE PATCH REMOVAL MC SCH (22:00)
== END 2019-09-24 10:31 | disposition home or self-care (01) ==
LOC: JER 03:07
PROC: 3E033NZ Introduction of Analgesics, Hypnotics, Sedatives into Peripheral Vein, Percutaneous Approach (ICD-10-PCS; principal; 2019-09-24)
PROC: 3E0333Z Introduction of Anti-inflammatory into Peripheral Vein, Percutaneous Approach (ICD-10-PCS; 2019-09-24)
DX: M54.6 Pain in thoracic spine (principal); M25.551 Pain in right hip; E11.9 Type 2 diabetes mellitus without complications; Z79.84 Long term (current) use of oral hypoglycemic drugs; F43.10 Post-traumatic stress disorder, unspecified; F31.9 Bipolar disorder, unspecified; Z87.39 Personal history of other diseases of the musculoskeletal system and connective tissue
CPT/HCPCS: 36415; 72131-TC; 80053; 83036; 85025; 96374; 96375; 99285-25; J0131

== ENCOUNTER 2024-04-07 16:48 | Inpatient (IN) | payer OTHER ==
[2024-04-07 17:45] VITALS: BMI 28.2
[2024-04-07] MEDS ORDERED: ONDANSETRON *ODT* 4 MG TABLET SL PRN (19:24)
[2024-04-07] MEDS ORDERED: MAGNESIUM HYDROX 2400MG/30ML ORAL SUSPENSION 30 ML CUP PO PRN (19:24)
[2024-04-07] MEDS ORDERED: IBUPROFEN 400 MG TABLET (FP) PO PRN (19:24)
[2024-04-07] MEDS ORDERED: BISMUTH SUBSALICYLATE 524 MG/30 ML PO PRN (19:24)
[2024-04-07] MEDS ORDERED: guaiFENesin 600 MG TABLET.ER (FP) PO PRN (19:24)
[2024-04-07] MEDS ORDERED: BENZONATATE 200 MG CAPSULE PO PRN (19:24)
[2024-04-07] MEDS ORDERED: MAG HYDROX/AL HYDROX/SIMETH 30 ML UNIT-DOSE CUP PO PRN (19:24)
[2024-04-07] MEDS ORDERED: IBUPROFEN 600 MG TABLET (FP) PO PRN (19:24)
[2024-04-07] MEDS ORDERED: LOPERAMIDE HCL 2 MG CAPSULE PO PRN (19:24)
[2024-04-07] MEDS ORDERED: ACETAMINOPHEN 325 MG TABLET (FP) PO PRN (19:24)
[2024-04-07] MEDS ORDERED: NALOXONE HCL 0.4 MG/ML VIAL IM PRN (19:24)
[2024-04-07] MEDS ORDERED: POLYETHYLENE GLYCOL (HEALTHYLAX) 3350 17 GM PACKET PO PRN (19:24)
[2024-04-07] MEDS ORDERED: BENZOCAINE/MENTHOL (CHLORASEPTIC ) LOZENGE MM PRN (19:24)
[2024-04-07] MEDS ORDERED: NALOXONE (NARCAN) HCL 4 MG/0.1 ML SPRAY NS PRN (19:24)
[2024-04-07] MEDS: THIAMINE 100 MG TABLET PO SCH (22:31)
[2024-04-07] MEDS: METHOCARBAMOL 500 MG TABLET PO PRN (22:31)
[2024-04-07] MEDS: MELATONIN 5 MG TABLETS PO SCH (22:31)
[2024-04-08] MEDS: PRENATAL VITAMINS W/ FOLIC ACID TABLET (FP) PO SCH (10:08)
[2024-04-08] MEDS: metFORMIN HCL 500 MG TABLET (FP) PO SCH (11:25)
[2024-04-08 11:42] LABS: CHLORIDE 107 mmol/L (98-107); POTASSIUM 4.7 mmol/L (3.5-5.1); SODIUM 141 mmol/L (136-145)
[2024-04-08 11:45] LABS: ALBUMIN 3.3 g/dl (3.4-5.0); ANION GAP 6 mmol/L (4-13); BLOOD UREA NITROGEN 13.5 mg/dL (7-18); CALCIUM 9.4 mg/dL (8.5-10.1); CO2 28 mmol/L (21-32); GLUCOSE,RANDOM 94 mg/dL (74-106)
[2024-04-08 11:47] LABS: HEMOGLOBIN 14.4 GM/dL (11.7-16.9); MCH 32.7 pg (25.7-33.7); MCHC 33.4 g/dl (32.0-35.9); MEAN CELL VOLUME 97.9 fl (80-96); MEAN PLT VOLUME 8.6 fl (7.5-11.1); PLATELET COUNT 342 10^3/uL (134-434); RDW 13.9 % (11.9-15.9); WHITE BLOOD COUNT 5.1 K/mm3 (4.0-10.0)
[2024-04-08 11:48] LABS: CREATININE 0.9 mg/dL (0.55-1.3); SGOT/AST 25 U/L (15-37); SGPT/ALT 28 U/L (13-61)
[2024-04-08 11:50] LABS: ALK PHOS 114 U/L (45-117); BILIRUBIN,TOTAL 0.3 mg/dL (0.2-1)
[2024-04-08 11:54] LABS: TOT PROT 6.2 g/dl (6.4-8.2)
[2024-04-08] MEDS: VITAMINS A AND D TOPICAL OINTMENT TP SCH (13:06)
[2024-04-08] MEDS: CLOTRIMAZOLE 1% CREAM TP SCH (13:43)
[2024-04-08] MEDS: SELENIUM SULFIDE 2.25% 180 ML SHAMPOO TP SCH (13:44)
[2024-04-08] MEDS: DICYCLOMINE HCL 10 MG CAPSULE PO PRN (17:35)
[2024-04-08] MEDS: traZODone HCL 100 MG TABLET (FP) PO SCH (21:59)
[2024-04-09] MEDS: hydrOXYzine PAMOATE 25 MG CAPSULE (FP) PO PRN (22:17)
[2024-04-11] MEDS: HYDROCORTISONE 0.5% TOPICAL CREAM 30 GM TUBE TP PRN (10:21)
[2024-04-11] MEDS: KETOCONAZOLE 2 % SHAMPOO 120 ML BOTTLE TP SCH (10:23)
[2024-04-11 12:58] VITALS: BP 120/72; PULSE 62; RESP 16; TEMP 98.5
== END 2024-04-11 11:15 | disposition home or self-care (01) | DRG 774 ==
LOC: YASAS 16:48 → Y6N 20:23
PROVIDERS: ADMIT Allergy & Immunology; ATTEND Psychiatry & Neurology Pain Medicine
PROC: HZ2ZZZZ Detoxification Services for Substance Abuse Treatment (ICD-10-PCS; principal; 2024-04-07)
DX: F10.230 Alcohol dependence with withdrawal, uncomplicated (principal); F14.20 Cocaine dependence, uncomplicated; F17.210 Nicotine dependence, cigarettes, uncomplicated; F31.9 Bipolar disorder, unspecified; F43.10 Post-traumatic stress disorder, unspecified; G62.9 Polyneuropathy, unspecified; K21.9 Gastro-esophageal reflux disease without esophagitis; E11.9 Type 2 diabetes mellitus without complications; Z79.84 Long term (current) use of oral hypoglycemic drugs; L40.9 Psoriasis, unspecified; L85.3 Xerosis cutis; M54.50 Low back pain, unspecified; G89.29 Other chronic pain
CPT/HCPCS: 36415; 80053; 80305; 80307; 82962; 85027; 86593; 86780; 93005; 93010

== ENCOUNTER 2024-10-21 10:42 | Inpatient (IN) | payer OTHER ==
[2024-10-21] MEDS ORDERED: NICOTINE POLACRILEX 2 MG LOZENGE BC PRN (11:49)
[2024-10-21] MEDS ORDERED: BENZOCAINE/MENTHOL (CHLORASEPTIC ) LOZENGE MM PRN (11:49)
[2024-10-21] MEDS ORDERED: BISMUTH SUBSALICYLATE 524 MG/30 ML PO PRN (11:49)
[2024-10-21] MEDS ORDERED: NALOXONE (NARCAN) HCL 4 MG/0.1 ML SPRAY NS PRN (11:49)
[2024-10-21] MEDS ORDERED: ONDANSETRON *ODT* 4 MG TABLET SL PRN (11:49)
[2024-10-21] MEDS ORDERED: LOPERAMIDE HCL 2 MG CAPSULE PO PRN (11:49)
[2024-10-21] MEDS ORDERED: IBUPROFEN 400 MG TABLET (FP) PO PRN (11:49)
[2024-10-21] MEDS ORDERED: DICYCLOMINE HCL 10 MG CAPSULE PO PRN (11:49)
[2024-10-21] MEDS ORDERED: NICOTINE POLACRILEX 2 MG GUM BUC PRN (11:49)
[2024-10-21] MEDS ORDERED: MAG HYDROX/AL HYDROX/SIMETH 30 ML UNIT-DOSE CUP PO PRN (11:49)
[2024-10-21] MEDS ORDERED: BENZONATATE 200 MG CAPSULE PO PRN (11:49)
[2024-10-21] MEDS ORDERED: POLYETHYLENE GLYCOL (HEALTHYLAX) 3350 17 GM PACKET PO PRN (11:49)
[2024-10-21] MEDS ORDERED: IBUPROFEN 600 MG TABLET (FP) PO PRN (11:49)
[2024-10-21] MEDS ORDERED: guaiFENesin 600 MG TABLET.ER (FP) PO PRN (11:49)
[2024-10-21] MEDS ORDERED: ACETAMINOPHEN 325 MG TABLET (FP) PO PRN (11:49)
[2024-10-21] MEDS ORDERED: MAGNESIUM HYDROX 2400MG/30ML ORAL SUSPENSION 30 ML CUP PO PRN (11:49)
[2024-10-21 11:54] VITALS: BMI 25.7
[2024-10-21] MEDS: METHOCARBAMOL 500 MG TABLET PO PRN (22:53)
[2024-10-21] MEDS: MELATONIN 5 MG TABLETS PO SCH (22:53)
[2024-10-21] MEDS: traZODone HCL 100 MG TABLET (FP) PO SCH (22:53)
[2024-10-21] MEDS: THIAMINE 100 MG TABLET PO SCH (22:53)
[2024-10-22 09:21] LABS: POTASSIUM 4.4 mmol/L (3.5-5.1)
[2024-10-22 09:24] LABS: CALCIUM 9.1 mg/dL (8.5-10.1)
[2024-10-22 09:25] LABS: ALBUMIN 3.2 g/dl (3.4-5.0); BLOOD UREA NITROGEN 16.4 mg/dL (7-18)
[2024-10-22 09:28] LABS: CREATININE 0.7 mg/dL (0.55-1.3)
[2024-10-22 09:30] LABS: HEMATOCRIT 39.3 % (35.4-49); HEMOGLOBIN 13.4 GM/dL (11.7-16.9); MCH 33.6 pg (25.7-33.7); MCHC 34.1 g/dl (32.0-35.9); MEAN CELL VOLUME 98.4 fl (80-96); MEAN PLT VOLUME 8.7 fl (7.5-11.1); PLATELET COUNT 308 10^3/uL (134-434); RDW 13.6 % (11.9-15.9); WHITE BLOOD COUNT 6.1 K/mm3 (4.0-10.0)
[2024-10-22 09:32] LABS: BILIRUBIN,TOTAL 0.2 mg/dL (0.2-1)
[2024-10-22] MEDS: PRENATAL VITAMINS W/ FOLIC ACID TABLET (FP) PO SCH (09:42)
[2024-10-22] MEDS: CLOBETASOL PROPIONATE 15 GM OINTMENT TP SCH (11:23)
[2024-10-22] MEDS: SELENIUM SULFIDE 2.25% 180 ML SHAMPOO TP SCH (11:23)
[2024-10-22] MEDS: FLU VACCINE (FLULAVAL) PF 45 MCG/0.5 ML SYRINGE 2024-2025 IM ONE (12:38)
[2024-10-23 06:47] VITALS: RESP 16
[2024-10-23 08:55] VITALS: BP 113/68; PULSE 72; TEMP 97.6
== END 2024-10-23 11:28 | disposition home or self-care (01) | DRG 774 ==
LOC: YASAS 10:42 → Y6N 13:36
PROVIDERS: ADMIT Allergy & Immunology; ATTEND Allergy & Immunology
PROC: HZ2ZZZZ Detoxification Services for Substance Abuse Treatment (ICD-10-PCS; principal; 2024-10-21)
DX: F10.230 Alcohol dependence with withdrawal, uncomplicated (principal); F14.20 Cocaine dependence, uncomplicated; F17.210 Nicotine dependence, cigarettes, uncomplicated; F31.9 Bipolar disorder, unspecified; F43.10 Post-traumatic stress disorder, unspecified; E11.9 Type 2 diabetes mellitus without complications; Z79.84 Long term (current) use of oral hypoglycemic drugs; K21.9 Gastro-esophageal reflux disease without esophagitis; L40.9 Psoriasis, unspecified; Z59.00 Homelessness unspecified
CPT/HCPCS: 36415; 80053; 80305; 80307; 82962; 85027; 86593; 86780; 90656; G0008